=== PATIENT | female | born 2000 | race Caucasian/White ===

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

== ENCOUNTER 2020-11-03 20:41 | Emergency (ER) | payer OTHER, MEDICAID ==
[~2020-11-03] VITALS: Ht 172.7 cm; Wt 123.4 kg
[~2020-11-03 20:41] MED LIST changes: +ACHD5005 PO; -BENZ78AE2 TP; +BENZ78AE5 TP; -CATHETER FLUSH 10 ML SYR IV PRN; -HYDR-83 PO
[2020-11-03 20:52] VITALS: BP 127/62
[2020-11-03] MEDS ORDERED: IBUP-1773 PO (20:58)
--- NOTE | 2020-11-03 21:02 | ED Lower Extremity ---
General Chief Complaint: Lower Extremity Stated Complaint: LT KNEE PAIN History of Present Illness Date Seen by Provider: Nov 03, 2020 Time Seen by Provider: 20:50 Initial Comments 20-year-old female presents with left knee pain. States she was at a gym and bent over and twisted to her left side and felt a pop in her knee. Since then (for the past 2 hours) that she has had some pain in the knee, worse with walking and bending. No significant swelling or bruising. Denies history of knee pain or problems or injury. Denies any other injury or complaint Allergies and Home Medications Allergies Coded Allergies: pumpkin (Verified Adverse Reaction, Unknown, 09/04/18) Home Medications Benzocaine/Menthol 78 Gm Aerosol, 56 ML TP UD PRN for PAIN- SEE INSTRUCTIONS Prescribed by: SHIKHA BOOTHE on 11/22/19 1051 Cephalexin 500 Mg Capsule, 500 MG PO TID Prescribed by: LULÚ AGUILAR on 12/13/19 1514 Dibucaine 30 Gm Oint, 0 GM TOP UD PRN for PAIN- SEE INSTRUCTIONS Prescribed by: SHIKHA BOOTHE on 11/22/19 1051 Docusate Sodium 100 Mg Capsule, 100 MG PO BID PRN for CONSTIPATION-1ST LINE Prescribed by: SHIKHA BOOTHE on 11/22/19 1051 Ferrous Sulfate 325 Mg Tablet, 325 MG PO DAILY Prescribed by: SHIKHA BOOTHE on 11/22/19 1051 Hydrocodone/Acetaminophen 1 Each Tablet, 1 TAB PO Q4H PRN for PAIN-MODERATE (5- 7) Prescribed by: SHIKHA BOOTHE on 11/22/19 1051 Ibuprofen 600 Mg Tablet, 600 MG PO Q6HR Prescribed by: SHIKHA BOOTHE on 11/22/19 1051 Ibuprofen 600 Mg Tablet, 600 MG PO Q8H PRN for PAIN-MILD Prescribed by: LUCHO LAO on 11/03/202057 Ymq972/Iron Fumarate/FA/Dss 1 Each Tablet, 1 EACH PO DAILY, (Reported) Patient Home Medication List Home Medication List Reviewed: Yes Review of Systems Constitutional: no symptoms reported Musculoskeletal: No back pain; joint pain (left knee); No muscle pain, No muscle stiffness, No neck pain Skin: no symptoms reported; No change in color, No rash Psychiatric/Neurological: Denies Numbness, Denies Paresthesia Past Wbwvugy-Klbmeo-Eyhiih Hx Past Med/Social Hx: Reviewed Nursing Past Med/Soc Hx Patient Social History Alcohol Use: Denies Use Smoking Status: Never a Smoker 2nd Hand Smoke Exposure: No Recent Hopitalizations: Yes (three weeks post ) Immunizations Up To Date PED Vaccines UTD: Yes Seasonal Allergies Seasonal Allergies: No Past Medical History Surgeries: No Respiratory: No Cardiac: No Neurological: No Concussion Female Reproductive Disorders: Ovarian Cyst Sexually Transmitted Disease: No Genitourinary: No Kidney Infection, UTI-Chronic Gastrointestinal: No Musculoskeletal: No Endocrine: No HEENT: No Cancer: No Psychosocial: No Integumentary: No Blood Disorders: No Family Medical History Patient reports no known family medical history. Physical Exam Vital Signs Vital Signs - First Documented 11/03/20 20:52 Temp 36.4 Pulse 114 B/P (MAP) 127/62 (83) Pulse Ox 99 O2 Delivery Room Air Capillary Refill : Height, Weight, BMI Height: 5'7.00" Weight: 200lbs. oz. 90.802599pk; 32.00 BMI Method:Stated General Appearance: WD/WN, no apparent distress Hips: bilateral hip non-tender, bilateral hip normal inspection, bilateral hip normal range of motion Legs: bilateral leg non-tender, bilateral leg normal inspection, bilateral leg normal range of motion Knees: left knee normal inspection, left knee normal range of motion, left knee pain (LCL) Ankles: bilateral ankle non-tender, bilateral ankle normal inspection, bilateral ankle normal range of motion Neurologic/Tendon: normal motor functions, normal tendon functions Neurologic/Psychiatric: no motor/sensory deficits, alert, normal mood/affect Skin: normal color, warm/dry full and functional ROM- tender LCL and Lat joint line without effusion. Progress/Results/Core Measures Results/Orders Vital Signs/I&O 11/03/20 20:52 Temp 36.4 Pulse 114 B/P (MAP) 127/62 (83) Pulse Ox 99 O2 Delivery Room Air Departure Impression Primary Impression: Knee LCL sprain Qualified Codes: S83.422A - Sprain of lateral collateral ligament of left knee, initial encounter Disposition: 01 HOME, SELF-CARE Condition: Stable Departure-Patient Inst. Decision time for Depature: 20:57 Referrals: EMRE SU MD (PCP/Family) Primary Care Physician Patient Instructions: Ligament Injuries in the Knee (DC) Add. Discharge Instructions: Follow up with Dr Su in 2 weeks for re-evaluation. Wear the knee brace daily to allow your ligament to start healing. Apply Ice to your knee for 20 minutes twice daily. All discharge instructions reviewed with patient and/or family. Voiced un derstanding. Scripts Ibuprofen (Ibuprofen) 600 Mg Tablet 600 MG PO Q8H PRN for PAIN-MILD, #30 TAB Prov: LUCHO LAO DO 11/03/20 LUCHO LAO DO Nov 03, 2020 21:01
== END 2020-11-03 21:03 | disposition home or self-care (01) ==
LOC: EDUNIT# 20:41 → ER FS 20:43
DX: S83.422A Sprain of lateral collateral ligament of left knee, initial encounter (principal); X50.1XXA Overexertion from prolonged static or awkward postures, initial encounter; Y92.39 Other specified sports and athletic area as the place of occurrence of the external cause
CPT/HCPCS: 99282

== ENCOUNTER 2021-07-11 12:12 | Emergency (ER) | payer BC, MEDICAID ==
[~2021-07-11] VITALS: Ht 175.3 cm; Wt 113.4 kg
[~2021-07-11 12:12] MED LIST changes: -DCS100C PO; +DOCU-239 PO; +IBUP-1773 PO
[2021-07-11 12:39] LABS: BASOPHILS % (AUTO) 0 % (0-10); EOSINOPHILS # (AUTO) 0.1 10^3/uL (0.0-0.3); EOSINOPHILS % (AUTO) 2 % (0-10); HEMATOCRIT 40 % (35-52); HEMOGLOBIN 12.7 g/dL (11.5-16.0); LYMPHOCYTES # (AUTO) 3.4 X 10^3 (1.0-4.0); LYMPHOCYTES % (AUTO) 50 % (12-44); MEAN CORPUSCULAR HEMOGLOBIN 26 pg (25-34); MEAN CORPUSCULAR HGB CONC 32 g/dL (32-36); MEAN CORPUSCULAR VOLUME 81 fL (80-99); MEAN PLATELET VOLUME 9.8 fL (9.0-12.2); MONOCYTES # (AUTO) 0.5 X 10^3 (0.0-1.0); MONOCYTES % (AUTO) 7 % (0-12); NEUTROPHILS # (AUTO) 2.8 X 10^3 (1.8-7.8); NEUTROPHILS % (AUTO) 41 % (42-75); PLATELET COUNT 297 10^3/uL (130-400); WHITE BLOOD COUNT 6.9 10^3/uL (4.3-11.0)
--- NOTE | 2021-07-11 12:56 | Diagnostic Imaging Report ---
EXAMINATION: Chest 1 view HISTORY: Chest pain COMPARISON: None available. FINDINGS: Heart size and pulmonary vasculature are normal. The lungs are clear without consolidation, pleural effusion, or pneumothorax. The osseous structures are intact. IMPRESSION: 1. No acute radiographic abnormality in the chest. Dictated by: Dictated on workstation # [id number]
[2021-07-11 12:57] LABS: ALBUMIN 4.2 GM/DL (3.2-4.5); BILIRUBIN,TOTAL 0.3 MG/DL (0.1-1.0); CALCIUM 9.1 MG/DL (8.5-10.1); CREATININE SERUM 0.63 MG/DL (0.60-1.30); POTASSIUM 3.8 MMOL/L (3.6-5.0); TOTAL PROTEIN 7.5 GM/DL (6.4-8.2)
--- NOTE | 2021-07-11 13:15 | ED Chest Pain ---
General Chief Complaint: Chest Pain Stated Complaint: COVID POSTIVE 07/04, CHEST PAIN Nursing Triage Note: Patient reports she began having symptoms of COVID-19 on June 27, states she was released from quarantine on July 08. She states her symtpoms during her infection were mild and she felt fully recovered 3-4 days after her symptoms started. She reports she began having mid-upper chest pain yesterday, described as tightness, rated 6-7 with deep breathing. She denies any cough, shortness of breath, or other symptoms. Source: patient Exam Limitations: no limitations History of Present Illness Date Seen by Provider: Jul 11, 2021 Time Seen by Provider: 12:45 Initial Comments Patient is a 21-year-old female who is 2 weeks post Covid who presents with left parasternal chest pain starting 2 days ago. Pain is described as dull worse with deep breathing and is mild in nature. Patient denies chest wall tenderness cough, fever, sore throat. No abdominal pain. Patient did take ibuprofen with some improvement. Denies leg pain or swelling. No history of DVT or PE. No no other acute symptoms or complaints Timing/Duration: 2-3 days Severity/Quality: dull Location: other Activities at Onset: other Prior CP/Workup: other Modifying Factors: improves with other Allergies and Home Medications Allergies Coded Allergies: pumpkin (Verified Adverse Reaction, Unknown, 09/04/18) Patient Home Medication List Home Medication List Reviewed: Yes Benzocaine/Menthol (Dermoplast Pain Relieving [place]) 78 Gm Aerosol, 56 ML TP UD PRN for PAIN- SEE INSTRUCTIONS Prescribed by: SHIKHA BOOTHE on 11/22/19 1051 Cephalexin (Keflex) 500 Mg Capsule, 500 MG PO TID Prescribed by: LULÚ AGUILAR on 12/13/19 1514 Dibucaine (Dibucaine) 30 Gm Oint, 0 GM TOP UD PRN for PAIN- SEE INSTRUCTIONS Prescribed by: SHIKHA BOOTHE on 11/22/19 1051 Docusate Sodium (Dok) 100 Mg Capsule, 100 MG PO BID PRN for CONSTIPATION-1ST LINE Prescribed by: SHIKHA OBOTHE on 11/22/19 1051 Ferrous Sulfate (Ferrous Sulfate) 325 Mg Tablet, 325 MG PO DAILY Prescribed by: SHIKHA BOOTHE on 11/22/19 1051 Hydrocodone/Acetaminophen (Hydrocodone-Acetamin 5-325 mg) 1 Each Tablet, 1 TAB PO Q4H PRN for PAIN-MODERATE (5-7) Prescribed by: SHIKHA BOOTHE on 11/22/19 105 Ibuprofen (Ibu) 600 Mg Tablet, 600 MG PO Q6HR Prescribed by: SHIKHA BOOTHE on 11/22/19 105 Ibuprofen (Ibuprofen) 600 Mg Tablet, 600 MG PO Q8H PRN for PAIN-MILD Prescribed by: LUCHO RODRÍGUEZSTHERBERT on 11/03/202057 [id number]/Iron Fumarate/FA/Dss ( 19 Tablet) 1 Each Tablet, 1 EACH PO DAILY, (Reported) Entered as Reported by: JOSEFINA ROBLERO on 08/29/192302 Review of Systems Review of Systems Constitutional: see HPI EENTM: See HPI Respiratory: See HPI Cardiovascular: See HPI Gastrointestinal: See HPI Genitourinary: See HPI Musculoskeletal: see HPI Skin: see HPI Psychiatric/Neurological: See HPI Endocrine: See HPI Hematologic/Lymphatic: See HPI All Other Systems Reviewed Negative Unless Noted: Yes Past Diwqeko-Vrfgon-Vhdymk Hx Patient Social History Tobacco Use?: Yes Substance use?: No Alcohol Use?: No Pt feels they are or have been: No Immunizations Up To Date PED Vaccines UTD: Yes COVID19 Vaccine Property Officer: Moderna Seasonal Allergies Seasonal Allergies: No Past Medical History Surgeries: No Respiratory: No Cardiac: No Neurological: No Concussion Last Menstrual Period: Jul 04, 2021 Female Reproductive Disorders: Ovarian Cyst Sexually Transmitted Disease: No Genitourinary: No Kidney Infection, UTI-Chronic Gastrointestinal: No Musculoskeletal: No Endocrine: No HEENT: No Cancer: No Psychosocial: No Integumentary: No Blood Disorders: No Family Medical History Patient reports no known family medical history. Physical Exam Vital Signs Vital Signs - First Documented 07/11/21 12:20 Temp 36.2 Pulse 97 Resp 16 B/P (MAP) 129/72 (91) Pulse Ox 99 O2 Delivery Room Air Capillary Refill : Less Than 3 Seconds Height, Weight, BMI Height: 5'7.00" Weight: 200lbs. oz. 90.490267ri; 36.00 BMI Method:Stated General Appearance: No Apparent Distress, WD/WN HEENT: PERRL/EOMI, Pharynx Normal, Moist Mucous Membranes Neck: Full Range of Motion, Non Tender, Supple Respiratory: Chest Non Tender, Lungs Clear, Normal Breath Sounds Cardiovascular: Regular Rate, Rhythm Gastrointestinal: Non Tender, Soft Extremity: Normal Inspection, Normal Range of Motion, No Calf Tenderness Neurologic/Psychiatric: Alert, Oriented x3 Focused Exam Sepsis Stage: Ruled Out Progress/Results/Core Measures Results/Orders Lab Results Laboratory Tests Test 07/11/21 12:30 Range/Units White Blood Count 6.9 4.3-11.0 10^3/uL Red Blood Count 4.88 3.80-5.11 10^6/uL Hemoglobin 12.7 11.5-16.0 g/dL Hematocrit 40 35-52 % Mean Corpuscular Volume 81 80-99 fL Mean Corpuscular Hemoglobin 26 25-34 pg Mean Corpuscular Hemoglobin Concent 32 32-36 g/dL Red Cell Distribution Width 14.7 H 10.0-14.5 % Platelet Count 297 130-400 10^3/uL Mean Platelet Volume 9.8 9.0-12.2 fL Immature Granulocyte % (Auto) 0 % Neutrophils (%) (Auto) 41 L 42-75 % Lymphocytes (%) (Auto) 50 H 12-44 % Monocytes (%) (Auto) 7 0-12 % Eosinophils (%) (Auto) 2 0-10 % Basophils (%) (Auto) 0 0-10 % Neutrophils # (Auto) 2.8 1.8-7.8 X 10^3 Lymphocytes # (Auto) 3.4 1.0-4.0 X 10^3 Monocytes # (Auto) 0.5 0.0-1.0 X 10^3 Eosinophils # (Auto) 0.1 0.0-0.3 10^3/uL Basophils # (Auto) 0.0 0.0-0.1 10^3/uL Immature Granulocyte # (Auto) 0.0 0.0-0.1 10^3/uL D-Dimer 0.16 0.00-0.49 UG/ML Sodium Level 137 135-145 MMOL/L Potassium Level 3.8 3.6-5.0 MMOL/L Chloride Level 101 98-107 MMOL/L Carbon Dioxide Level 25 21-32 MMOL/L Anion Gap 11 5-14 MMOL/L Blood Urea Nitrogen 6 L 7-18 MG/DL Creatinine 0.63 0.60-1.30 MG/DL Estimat Glomerular Filtration Rate 119 BUN/Creatinine Ratio 10 Glucose Level 92 70-105 MG/DL Calcium Level 9.1 8.5-10.1 MG/DL Corrected Calcium 8.9 8.5-10.1 MG/DL Total Bilirubin 0.3 0.1-1.0 MG/DL Aspartate Amino Transf (AST/SGOT) 21 5-34 U/L Alanine Aminotransferase (ALT/SGPT) 40 0-55 U/L Alkaline Phosphatase 73 40-136 U/L Total Protein 7.5 6.4-8.2 GM/DL Albumin 4.2 3.2-4.5 GM/DL My Orders Orders - WALTER PA DO Cbc With Automated Diff (07/11/21 12:32) Comprehensive Metabolic Panel (07/11/21 12:32) Chest 1 View Ap/Pa Only (07/11/21 12:32) Urine Bedside (07/11/21 12:32) Fibrin Degradation Products (07/11/21 12:32) Ekg Tracing (07/11/21 13:03) Vital Signs/I&O 07/11/21 12:20 Temp 36.2 Pulse 97 Resp 16 B/P (MAP) 129/72 (91) Pulse Ox 99 O2 Delivery Room Air Blood Pressure Mean: 91 Departure Communication (Admissions) Chest x-ray: No acute cardiopulmonary disease per radiology report. Patient with mild pleuritic chest pain in the setting of recent Covid. Vital signs stable. D-dimer is low probability for likelihood of PE. Patient symptoms are clinically more consistent with pleurisy. Will treat supportively with PCP follow-up. Return precautions reviewed. Patient verbalizes understanding agreement discharge instructions prior to departure. Impression Primary Impression: Pleurisy Additional Impression: Chest pain Disposition: 01 HOME, SELF-CARE Condition: Stable Departure-Patient Inst. Decision time for Depature: 13:15 Referrals: MERE SU MD (PCP/Family) Primary Care Physician Patient Instructions: Pleuritic Chest Pain Add. Discharge Instructions: You were evaluated the emergency department for pleuritic chest pain with concern for the possibility of a blood clot.. Lab work and x-ray were performed and are nondiagnostic, but suggest that you are currently low risk for having a blood clot in your lungs. Your symptoms are most consistent with pleurisy or inflammation of the lining of the lung. Please take 600 mg of ibuprofen 3 times daily along with Pepcid [id number]. Follow-up with your PCP in 3 to 5 days for reevaluation if symptoms persist. Return to the ED if new or worsening symptoms. All discharge instructions reviewed with patient and/or family. Voiced understanding. WALTER PA DO Jul 11, 2021 13:15
[2021-07-11 13:21] VITALS: BP 126/71
== END 2021-07-11 13:23 | disposition home or self-care (01) ==
LOC: EDUNIT# 12:12 → ER FS 12:14
DX: R09.1 Pleurisy (principal); R79.1 Abnormal coagulation profile; Z86.16 Personal history of COVID-19
CPT/HCPCS: 36415; 71045; 80053; 84703; 85025; 85379; 93005

== ENCOUNTER → 2021-08-26 | Outpatient (CLI) | payer BC, MEDICAID ==
--- NOTE | 2021-08-26 11:41 | Diagnostic Imaging Report ---
PROCEDURE: Pelvic comp/transvaginal sonogram. TECHNIQUE: Complete transabdominal and transvaginal pelvic ultrasound was performed. In addition, limited pelvic Doppler was performed. INDICATION: Secondary amenorrhea. Uterus is anteverted measuring 5.8 x 3.5 x 3.9 cm. Endometrium is 7 mm in thickness. No myometrial mass is detected. Right ovary measures 4.0 x 3.0 x 3.4 cm and the left ovary measures 2.2 x 1.4 x 2.5 cm. There is a solid-appearing mass involving the right ovary measuring 2.7 x 2.6 x 2.7 cm. This does appear to have some blood flow present. No other masses are seen. Left ovary contains small follicles. There is no free fluid identified. IMPRESSION: There is a solid mass showing vascularity in the right ovary. No other significant abnormality is seen. Dictated by: Dictated on workstation # [id number]
== END ==
LOC: RAD 09:57
PROVIDERS: ATTEND Obstetrics & Gynecology
DX: N91.1 Secondary amenorrhea (principal); N83.8 Other noninflammatory disorders of ovary, fallopian tube and broad ligament
CPT/HCPCS: 76830; 76856

== ENCOUNTER → 2021-12-30 | Outpatient (CLI) | payer BC, MEDICAID ==
--- NOTE | 2021-12-30 11:08 | Diagnostic Imaging Report ---
PROCEDURE: Pelvic comp/transvaginal sonogram. TECHNIQUE: Complete transabdominal and transvaginal pelvic ultrasound was performed. In addition, limited pelvic Doppler was performed. INDICATION: Abdominal and pelvic swelling. Uterus is anteverted measuring 5.9 x 3.5 x 4.2 cm. Endometrium is 5 mm in thickness. No myometrial mass is detected. The left ovary measures 2.6 x 1.4 x 1.5 cm. There is a solid-appearing mass in the right adnexa measuring 5.6 x 5.3 x 5.7 cm. There is some internal and peripheral based vascularity. Normal-appearing right ovary is not well visualized. There is blood flow to left ovary. There is no free fluid detected. IMPRESSION: There appears to be a solid mass in the right adnexa, not definitely seen on prior ultrasound from 08/26/2021. Normal-appearing right ovary is not well visualized on today's study. Dictated by: Dictated on workstation # [id number]
== END ==
LOC: RAD 10:00
PROVIDERS: ATTEND Obstetrics & Gynecology
DX: N83.9 Noninflammatory disorder of ovary, fallopian tube and broad ligament, unspecified (principal)
CPT/HCPCS: 76830; 76856

== ENCOUNTER 2022-02-14 05:34 | Outpatient (CLI) | payer BC, MEDICAID ==
[~2022-02-14] VITALS: Ht 172.7 cm; Wt 115.7 kg
== END 2022-02-14 11:48 | disposition home or self-care (01) ==
LOC: PREOP 05:34
PROVIDERS: ATTEND Obstetrics & Gynecology
DX: Z01.818 Encounter for other preprocedural examination (principal)

== ENCOUNTER 2022-02-21 09:18 | Day surgery (SDC) | payer BC, MEDICAID ==
[2022-02-21] VITALS (12 sets, daily range): BP systolic 97–124; BP diastolic 58–82
[~2022-02-21] VITALS: Ht 172.7 cm; Wt 115.7 kg
[2022-02-21] MEDS: LACTATED RINGERS 1,000 ML IV PRN ×3 (09:48→13:56)
--- NOTE | 2022-02-21 09:56 | Progress Note-Pre Operative ---
Pre-Operative Progress Note Date of Available H&P: Feb 21, 2022 Date H&P Reviewed: Feb 21, 2022 Time H&P Reviewed: 09:55 History & Physical: H&P Reviewed, Patient Examed, No changes noted Pre-Operative Diagnosis: Right ovarian solid mass 5x5cm SHIKHA BOOTHE DO Feb 21, 2022 09:56
[2022-02-21] MEDS ORDERED: ceFAZolin INJECTION 1,000 MG VIAL IV ONE (10:00)
[2022-02-21] MEDS ORDERED: metroNIDAZOLE 500MG/100ML IVPB 100 ML IV ONE (10:00)
[2022-02-21 10:39] LABS: BASOPHILS % (AUTO) 1 % (0-10); EOSINOPHILS # (AUTO) 0.1 10^3/uL (0.0-0.3); EOSINOPHILS % (AUTO) 1 % (0-10); HEMATOCRIT 37 % (35-52); LYMPHOCYTES # (AUTO) 2.5 10^3/uL (1.0-4.0); LYMPHOCYTES % (AUTO) 41 % (12-44); MEAN CORPUSCULAR HEMOGLOBIN 26 pg (25-34); MEAN CORPUSCULAR HGB CONC 32 g/dL (32-36); MEAN CORPUSCULAR VOLUME 81 fL (80-99); MEAN PLATELET VOLUME 10.4 fL (9.0-12.2); MONOCYTES # (AUTO) 0.5 10^3/uL (0.0-1.0); MONOCYTES % (AUTO) 7 % (0-12); NEUTROPHILS # (AUTO) 3.1 10^3/uL (1.8-7.8); NEUTROPHILS % (AUTO) 50 % (42-75); PLATELET COUNT 301 10^3/uL (130-400); WHITE BLOOD COUNT 6.2 10^3/uL (4.3-11.0)
[2022-02-21] MEDS ORDERED: ACHD5005 PO (11:06)
[2022-02-21] MEDS ORDERED: IBUP-1773 PO (11:06)
--- NOTE | 2022-02-21 11:06 | Discharge Inst-Women's Service ---
Discharge Inst-Women's Serv Depart Medication/Instructions New, Converted or Re-Newed RX: Transmitted to Pharmacy Problems Reviewed?: Yes Consults/Follow Up Additional Follow Up: Yes Activity Activity: Activity as Tolerated Driving Instructions: No Driving for 1 Week NO SMOKING: NO SMOKING Nothing Inside Vagina: No Douching, No [place], No Tampons Diet Discharge Diet: No Restrictions Symptoms to Report to : Bleeding Excessive, Pain Increased, Fever Over 101 Degrees F, Vaginal Bleeding Increase, Questions/Concerns For Any Problems or Questions: Contact Your Physician Skin/Wound Care Infection Signs and Symptoms: Increased Redness, Foul Odor of Wound, Increased Drainage, Skin Itchy or Has a Rash, Increased Swelling, Temperature Above 101 F Operative Area Clean and Dry: Keep Incision Clean/Dry SHIKHA BOOTHE DO Feb 21, 2022 11:06
[2022-02-21] MEDS ORDERED: proPOfol 200 MG/20 ML (DIPRIVAN) VIAL IV ONE (11:14)
[2022-02-21] MEDS ORDERED: LIDOCAINE PF 2% 5 ML (XYLOCAINE) VIAL ONE (11:14)
[2022-02-21] MEDS ORDERED: ONDANSETRON 4 MG/2 ML (SDV) Z0FRAN ONE (11:14)
[2022-02-21] MEDS ORDERED: fentaNYL INJ 100 MCG/2 ML AMP ONE ×3 (11:14→13:31)
[2022-02-21] MEDS ORDERED: ROCURONIUM 50 MG/5 ML (ZEMURON) VIAL IV ONE (11:14)
[2022-02-21] MEDS ORDERED: MIDAZOLAM 2 MG/2 ML (VERSED) VIAL ONE (11:14)
[2022-02-21] MEDS ORDERED: KETOROLAC 30 MG/ML VIAL IVP ONE (11:15)
[2022-02-21] MEDS ORDERED: HYDROcodone/APAP 5 MG/325 MG (LORTAB) TAB PO PRN (11:15)
[2022-02-21] MEDS ORDERED: D5 LR IV SOLUTION 1,000 ML IV SCH (11:15)
[2022-02-21] MEDS ORDERED: ONDANSETRON 4 MG/2 ML (SDV) Z0FRAN IVP PRN ×2 (11:15→13:45)
--- NOTE | 2022-02-21 11:36 | History & Physical-Surgical ---
HPO-Surgical History of Present Illness Chief Complaint: Right ovarian Mass Diagnosis/Surgical Indication: Right ovarian solid mass 5x5cm Procedure: RATL REMOVAL RIGHT OVARIAN MASS SOLID Date of Surgery: Feb 21, 2022 Weight (Pounds): 200 Height (Feet): 5 Height (Inches): 7.00 Allergies and Home Medications Allergies Coded Allergies: pumpkin (Verified Adverse Reaction, Unknown, 02/21/22) Patient Home Medication List Home Medication List Reviewed: Yes Hydrocodone Bit/Acetaminophen (HYDROcodone/APAP 5 MG/325 MG TAB) 1 Tab Tab, 1-2 EA PO Q6HR PRN for PAIN-MODERATE (5-7) Prescribed by: SHIKHA BOOTHE on 02/21/22 1106 Ibuprofen (Ibuprofen) 600 Mg Tablet, 600 MG PO Q6H Prescribed by: SHIKHA BOOTHE on 02/21/22 1106 Discontinued Medications Benzocaine/Menthol (Dermoplast Pain Relieving [place]) 78 Gm Aerosol, 56 ML TP UD PRN for PAIN- SEE INSTRUCTIONS Discontinued Reason: No Longer Taking Prescribed by: SHIKHA BOOTHE on 11/22/19 1051 Cephalexin (Keflex) 500 Mg Capsule, 500 MG PO TID Discontinued Reason: No Longer Taking Prescribed by: LULÚ AGUILAR on 12/13/19 1514 Dibucaine (Dibucaine) 30 Gm Oint, 0 GM TOP UD PRN for PAIN- SEE INSTRUCTIONS Discontinued Reason: No Longer Taking Prescribed by: SHIKHA BOOTHE on 11/22/19 1051 Docusate Sodium (Dok) 100 Mg Capsule, 100 MG PO BID PRN for CONSTIPATION-1ST LINE Discontinued Reason: No Longer Taking Prescribed by: SHIKHA BOOTHE on 11/22/19 1051 Ferrous Sulfate (Ferrous Sulfate) 325 Mg Tablet, 325 MG PO DAILY Discontinued Reason: No Longer Taking Prescribed by: SHIKHA BOOTHE on 11/22/19 1051 Hydrocodone/Acetaminophen (Hydrocodone-Acetamin 5-325 mg) 1 Each Tablet, 1 TAB PO Q4H PRN for PAIN-MODERATE (5-7) Discontinued Reason: No Longer Taking Prescribed by: SHIKHA BOOTHE on 11/22/19 1051 Ibuprofen (Ibu) 600 Mg Tablet, 600 MG PO Q6HR Discontinued Reason: No Longer Taking Prescribed by: SHIKHA BOOTHE on 11/22/19 1051 Ibuprofen (Ibuprofen) 600 Mg Tablet, 600 MG PO Q8H PRN for PAIN-MILD Discontinued Reason: No Longer Taking Prescribed by: LUCHO Mast ROVENSTINE on 11/03/202057 [id number]/Iron Fumarate/FA/Dss ( 19 Tablet) 1 Each Tablet, 1 EACH PO DAILY, (Reported) Discontinued Reason: No Longer Taking Entered as Reported by: JOSEFINA ROBLERO on 08/29/192302 Past Uvqrqmx-Fcfobi-Tqzcbv Hx Patient Social History Smoking Status: Never a Smoker 2nd Hand Smoke Exposure: No Recent Hopitalizations: No Immunizations Up To Date Pediatric: Yes Seasonal Allergies Seasonal Allergies: No Surgeries No Respiratory Yes (SPORT INDUCED ASTHMA) Cardiovascular No Neurological No Concussion Reproductive System Sexually Transmitted Disease: No Female Reproductive Disorders: Ovarian Cyst Genitourinary No Kidney Infection, UTI-Chronic Gastrointestinal No Musculoskeletal No Endocrine History of Endocrine Disorders: No HEENT History of HEENT Disorders: No Cancer No Psychosocial History of Psychiatric Problem: No Behavioral Health Disorders: Anxiety Integumentary History of Skin or Integumenta: No Blood Transfusions History of Blood Disorders: No Family Medical History Family Hx: Patient reports no known family medical history. Exam Vital Signs Vital Signs 02/21/22 02/21/22 09:35 10:04 Temp 37.2 Pulse 89 Resp 18 B/P (MAP) 122/73 (89) Pulse Ox 98 O2 Delivery Room Air Capillary Refill : Labs Laboratory Tests Test 02/21/22 10:28 Range/Units White Blood Count 6.2 4.3-11.0 10^3/uL Red Blood Count 4.64 3.80-5.11 10^6/uL Hemoglobin 12.0 11.5-16.0 g/dL Hematocrit 37 35-52 % Mean Corpuscular Volume 81 80-99 fL Mean Corpuscular Hemoglobin 26 25-34 pg Mean Corpuscular Hemoglobin Concent 32 32-36 g/dL Red Cell Distribution Width 14.8 H 10.0-14.5 % Platelet Count 301 130-400 10^3/uL Mean Platelet Volume 10.4 9.0-12.2 fL Immature Granulocyte % (Auto) 0 % Neutrophils (%) (Auto) 50 42-75 % Lymphocytes (%) (Auto) 41 12-44 % Monocytes (%) (Auto) 7 0-12 % Eosinophils (%) (Auto) 1 0-10 % Basophils (%) (Auto) 1 0-10 % Neutrophils # (Auto) 3.1 1.8-7.8 10^3/uL Lymphocytes # (Auto) 2.5 1.0-4.0 10^3/uL Monocytes # (Auto) 0.5 0.0-1.0 10^3/uL Eosinophils # (Auto) 0.1 0.0-0.3 10^3/uL Basophils # (Auto) 0.0 0.0-0.1 10^3/uL Immature Granulocyte # (Auto) 0.0 0.0-0.1 10^3/uL General Appearance: Alert, Oriented X3 HEENT: Atraumatic Respiratory: Clear to Auscultation Cardiovascular: Regular Rate Abdominal: Normal Bowel Sounds Psych/Mental Status: Mental Status NL Assessment/Plan Assessment and Plan P: Laparoscopic removal right ovarian mass Admission Diagnosis Solid Right Ovarian Mass (5x5 cm) Admission Status: Other (Same Day Surgery) SHIKHA BOOTHE DO Feb 21, 2022 11:36
[2022-02-21] MEDS ORDERED: BUPIVACAINE 0.25% 30 ML (SENSORCAINE) VIAL ONE (11:53)
[2022-02-21] MEDS ORDERED: NEOSTIGMINE (BLOXIVERZ ) 1 MG/1ML 10 ML VIAL ONE (12:45)
[2022-02-21] MEDS ORDERED: GLYCOPYRROLATE 0.2 MG/ML (ROBINUL) 2 ML VIAL ONE (12:45)
[2022-02-21] MEDS ORDERED: SEVOFLURANE (ULTANE) 15 ML INHAL SOLN ONE (13:40)
[2022-02-21] MEDS ORDERED: fentaNYL INJ 100 MCG/2 ML AMP IVP ONE (13:45)
[2022-02-21] MEDS ORDERED: morphine INJ 10 MG/ML 1ML (SYR OR VIAL) IVP ONE (13:45)
[2022-02-21] MEDS ORDERED: morphine INJ 10 MG/ML 1ML (SYR OR VIAL) ONE (13:53)
--- NOTE | 2022-02-21 14:05 | Anesthesia-General Post-Op ---
General Patient Condition Mental Status/LOC: Same as Preop Cardiovascular: Satisfactory Nausea/Vomiting: Absent Respiratory: Satisfactory Pain: Controlled Complications: Absent Post Op Complications Complications None Follow Up Care/Instructions Patient Instructions None needed. Anesthesia/Patient Condition Patient Condition Patient is doing well in PACU. She does complain of some abdominal pain which is to be expected, stable vital signs, no apparent adverse anesthesia problems. No complications reported per nursing. PATRICIA SANTO DO Feb 21, 2022 14:05
--- NOTE | 2022-02-21 18:50 | OPERATIVE REPORT ---
DATE OF SERVICE: PREOPERATIVE DIAGNOSIS: A 21-year-old female with 5 x 5 cm right solid ovarian mass. POSTOPERATIVE DIAGNOSIS: A 21-year-old female with 5 x 5 cm right solid ovarian mass. PROCEDURE: Laparoscopic removal of right ovarian mass with robotic assistance. SURGEON: Joseph Najera DO CNC SPECIALIST: Dari Ellison DNP, was necessary for manipulation and retraction throughout the procedure. ANESTHESIA: General endotracheal. ESTIMATED BLOOD LOSS: 100 mL. URINE OUTPUT: 150 mL clear at the end of the procedure. FLUIDS: 1700 mL lactated Ringer's solution. FINDINGS: Grossly normal appearing uterus, bilateral fallopian tubes and left ovary. Right ovary that is vastly enlarged approximately 6 x 6 cm in diameter. SPECIMEN SENT: Right ovarian mass. INDICATIONS FOR PROCEDURE: This 21-year-old female is a patient who had sought care in my office initially for oligomenorrhea, however, on further evaluation, there was found to be a right sided ovarian mass, earlier this year was 2 cm, within four months it changed from 2 to 5 cm. Due to this rapid change in size, I discussed with the patient removal of this ovarian mass, which was solid. Tumor markers forward were negative. We decided to attempt this minimally invasive in a laparoscopic manner with robotic assistance. Risks of the procedure were discussed with the patient in detail including possible risk of taking and removing the right ovary. After all of her questions were answered, consent was obtained, the patient was taken to the operating room. OPERATIVE REPORT IN DETAIL: Once in the operating room, anesthesia was found to be adequate, placed in dorsal lithotomy position, prepped and draped in normal sterile fashion. Timeout was performed. Anesthesia is administered. A Layne catheter was placed using sterile technique. Weighted speculum inserted to the patient's vagina. Right angle retractor was used to visualize the cervix, which was grasped at 12 o'clock position using a long Allis clamp. I then placed a [employer] uterine manipulator to a depth of 8 cm after the uterus was sounded to 8 cm, after which I removed the other instruments from the patient's vagina, performed change of gloves, turned my attention to the abdomen, where subcostally the midclavicular line on the left side, I placed a Veress needle through the skin until intraperitoneal placement was confirmed using saline drop test. An opening pressure of 3 mmHg was noted. I proceeded with CO2 insufflation to maximum pressure of 15 mmHg, at which point, I made an infraumbilical incision at approximately 8 mm and directed a blunt laparoscopic da Tolu camera trocar through this incision until intraperitoneal placement was confirmed using the da Tolu laparoscope. There was no evidence of damage upon my entry site. A brief scan of the upper abdominal anatomy appears to be grossly normal. There is no evidence of damage upon the Veress entry site and the Veress needle was removed at that point. I then had the patient placed in steep Trendelenburg where I am able to visualize all my pelvic anatomy as defined in my findings above. I placed two lateral trocars, both 8 mm trocars. They are approximately 8 cm lateral to my infraumbilical trocar. Once both of these trocars are placed under direct visualization of laparoscope, I bring in the da Tolu robot and docked in appropriate fashion, starting with the SynchroSeal device in left hand and monopolar ginny in the right hand. I began by incising down the capsule of the ovary longitudinally. I then began by peeling back the capsule of the ovary around this large ovarian mass. It does separate quite easily, however do run into a small amount of bleeding in the process of doing this. After I have done this circumferentially around the entirety of the mass, the mass was removed and put into the posterior cul-de-sac. I then focused on cauterizing and ligating all the bleeding from the raw dissection plane that was created by removal of the mass. This has to be done using bipolar cautery in several different areas. After this was done, the ovarian capsule that remains is copiously irrigated using normal saline and there was no active bleeding noted. I then fill that ovarian capsule area and all the raw surfaces with Surgiflo hemostatic agent. I wrapped the ovarian capsule around the Surgiflo agent and placed it back into the position of the right ovarian fossa in the pelvis. At that point, I removed and undocked the da Tolu robot and proceeded with remainder of the case laparoscopically. I have to extend my infraumbilical incision to approximately 4 cm laterally on the skin and extend the underlying fascial incision using chandra scissors as well. A 15 mm trocar is advanced through this incision now and this allows me to place a 15 mm Endopouch bag into the pelvis where I am able to scoop in place the ovarian mass into the Endopouch bag. Once it is in the bag, I am able to remove the ovary through the enlarged incision site and the umbilicus. After that is removed, I closed the fascia of that incision site using 0 Vicryl suture in a running fashion and I still have my two lateral trocar sites at that point. I reinsufflated the abdomen. There was no active bleeding noted from any of the sites of dissection including the anterior abdominal wall where the ovary was removed. I copiously irrigated the pelvis using normal saline. I copiously irrigated the upper abdomen using normal saline. There was no active bleeding noted once again. I then had the patient slowly taken out of steep Trendelenburg and suctioned the irrigation that is free. Once she is flattened, I removed the lateral trocars under direct visualization of the laparoscope. This is after insufflation is released. I then closed the lateral incisions using 4-0 Monocryl interrupted subcuticular stitches. Dermabond was placed over these incisions as well. The infraumbilical incision is closed using 4-0 Monocryl running subcuticular. Dermabond was placed over this incision as well. Band-Aids were placed over all of the incisions. A Kronner uterine manipulator and Layne catheter were removed at the end of procedure. The patient tolerated the procedure well and sent to recovery area in stable condition. Lap and sponge counts were correct at the end of the procedure. Instrument counts correct as well. A 2 grams of Ancef, 500 mg of Flagyl were given preoperatively for infection prophylaxis. Job ID: [id number] DocumentID: [id number] Dictated Date: 02/21/2022 13:26:16 [employer] Date: 02/21/2022 18:49:21 Dictated By: DO WICHO GUAN
== END 2022-02-21 16:15 ==
LOC: SDC 09:18
PROVIDERS: ATTEND Obstetrics & Gynecology
DX: D39.11 Neoplasm of uncertain behavior of right ovary (principal)
CPT/HCPCS: 36415; 84703; 85025; 86850; 86900; 86901; 87081; 94664

== ENCOUNTER → 2022-03-02 | Outpatient (CLI) | payer BC, MEDICAID ==
[~2022-03-02] MED LIST changes: +CATHETER FLUSH 10 ML SYR IV PRN; +HOLD METFORMIN - RECEIVED CONTRAST 20 ML VIAL IV SCH; +IOHEXOL 350 MG/ML 100 ML (OMNIPAQUE 350) VIAL IV ONE; +NS 100 ML (IVPB) BAG IV ONE
--- NOTE | 2022-03-02 14:09 | Diagnostic Imaging Report ---
PROCEDURE: CT abdomen and pelvis with contrast. TECHNIQUE: Multiple contiguous axial images were obtained through the abdomen and pelvis after administration of intravenous contrast. Auto Exposure Controls were utilized during the CT exam to meet ALARA standards for radiation dose reduction. All CT scans use one or more of the following dose optimizing techniques: automated exposure control, MA and/or KvP adjustment based on patient size and exam type or iterative reconstruction. INDICATION: Ovarian carcinoma. COMPARISON: No prior studies are available for comparison. FINDINGS: The lung bases are clear. The liver demonstrates diffuse low attenuation, consistent with hepatic steatosis. No liver mass is identified. The gallbladder is unremarkable. There is no biliary ductal dilatation. The pancreas and spleen are unremarkable. No adrenal mass is detected. The kidneys are unremarkable. The aorta is nonaneurysmal. No abdominal or pelvic lymphadenopathy is identified. There are postop changes of the midline anterior abdominal wall. Bowel loops are of normal caliber. There are postop changes in the right adnexa where there is a small amount of fluid and gas measuring 4.2 x 2.6 cm. The left ovary and uterus are unremarkable. The bladder is unremarkable. IMPRESSION: 1. Hepatic steatosis. 2. Post operative changes. There is an area of fluid and gas in the right adnexa which may be post operative. No other significant abnormality is seen. Dictated by: Dictated on workstation # [id number]
== END ==
LOC: RAD 11:59
PROVIDERS: ATTEND Obstetrics & Gynecology
DX: K76.0 Fatty (change of) liver, not elsewhere classified (principal); D27.9 Benign neoplasm of unspecified ovary; Z98.890 Other specified postprocedural states
CPT/HCPCS: 74177

== ENCOUNTER 2022-08-14 22:07 | Emergency (ER) | payer OTHER, MEDICAID ==
[~2022-08-14 22:07] MED LIST changes: -CATHETER FLUSH 10 ML SYR IV PRN; -HOLD METFORMIN - RECEIVED CONTRAST 20 ML VIAL IV SCH; -IOHEXOL 350 MG/ML 100 ML (OMNIPAQUE 350) VIAL IV ONE; -NS 100 ML (IVPB) BAG IV ONE
[2022-08-14] MEDS ORDERED: NS IV 1000 ML 1,000 ML IV STA (22:24)
[2022-08-14 22:33] LABS: BASOPHILS % (AUTO) 0 % (0-10); EOSINOPHILS # (AUTO) 0.1 10^3/uL (0.0-0.3); EOSINOPHILS % (AUTO) 1 % (0-10); HEMATOCRIT 33 % (35-52); HEMOGLOBIN 10.9 g/dL (11.5-16.0); LYMPHOCYTES # (AUTO) 2.3 10^3/uL (1.0-4.0); LYMPHOCYTES % (AUTO) 53 % (12-44); MEAN CORPUSCULAR HEMOGLOBIN 26 pg (25-34); MEAN CORPUSCULAR HGB CONC 34 g/dL (32-36); MEAN CORPUSCULAR VOLUME 78 fL (80-99); MEAN PLATELET VOLUME 9.7 fL (9.0-12.2); MONOCYTES # (AUTO) 0.2 10^3/uL (0.0-1.0); MONOCYTES % (AUTO) 4 % (0-12); NEUTROPHILS # (AUTO) 1.8 10^3/uL (1.8-7.8); NEUTROPHILS % (AUTO) 42 % (42-75); PLATELET COUNT 173 10^3/uL (130-400); WHITE BLOOD COUNT 4.3 10^3/uL (4.3-11.0)
--- NOTE | 2022-08-14 22:39 | ED Fever ---
History of Present Illness General Chief Complaint: Fever-Adult/Adol Stated Complaint: FEVER Source: patient History of Present Illness Date Seen by Provider: Aug 14, 2022 Time Seen by Provider: 22:10 Initial Comments 22-year-old female presenting with fever T-max 101.3 at home wendy. She states that she has not felt well all day but when she took her temperature this evening it was elevated. She had her most recent chemotherapy treatment on with carboplatin and Taxol. She follows with the [facility] out of [facility] and research. She had called the on-call oncologist wendy and they advised her to go to the emergency department. She was borderline neutropenic with an ANC of 1.4 last week. She did take ibuprofen at home before calling the oncologist. Her temperature is normal here in the emergency department. She denies having cough, nasal congestion, abdominal pain, vomiting, pain with urination, diarrhea. She does have some nausea but has not thrown up. She is taking fluconazole currently for a sore throat and she was told that was for possible reaction to her chemotherapy. She may have been having some thrush that they saw. She states that her throat pain is resolved but she still has some pressure and pain in her ears. Timing/Duration: this evening Fever Quality: greater than 100.5 F Fever Therapy BILLING SUPERVISOR: Ibuprofen Associated Symptoms: No abdominal pain, No chest pain, No confusion, No cough, No diaphoresis, No headache; muscle aches (Generalized body aches), nausea/vomiting (Nausea but no vomiting); No rash, No shortness of breath, No sore throat, No stiff neck, No syncope, No weakness Allergies and Home Medications Allergies Coded Allergies: pumpkin (Verified Adverse Reaction, Unknown, 02/21/22) Patient Home Medication List Home Medication List Reviewed: Yes Hydrocodone Bit/Acetaminophen (HYDROcodone/APAP 5 MG/325 MG TAB) 1 Tab Tab, 1-2 EA PO Q6HR PRN for PAIN-MODERATE (5-7) Prescribed by: SHIKHA BOOTHE on 02/21/22 110 Ibuprofen (Ibuprofen) 600 Mg Tablet, 600 MG PO Q6H Prescribed by: SHIKHA BOOTHE on 02/21/22 1106 Review of Systems Review of Systems Constitutional: chills; No diaphoresis; fever, malaise EENTM: ear pain, throat pain (Last week but resolved since taking the fluconazole); No epistaxis, No nose congestion Respiratory: No short of breath Cardiovascular: No chest pain, No palpitations Gastrointestinal: No abdominal pain, No diarrhea; nausea; No vomiting Genitourinary: No dysuria, No frequency Musculoskeletal: muscle pain (Generalized body aches) Skin: No rash Psychiatric/Neurological: Denies Headache Past Jhshbqk-Zkhexa-Dpmays Hx Patient Social History Tobacco Use?: No Use of E-Cig and/or Vaping dev: No Substance use?: No Alcohol Use?: No Immunizations Up To Date PED Vaccines UTD: Yes First/Initial COVID19 Vaccinat: 2020 x1 dose Seasonal Allergies Seasonal Allergies: No Past Medical History Surgery/Hospitalization HX: PowerPort,, asthma, ovarian cancer Surgeries: Yes Respiratory: Yes (SPORT INDUCED ASTHMA) Asthma Currently Using CPAP: No Currently Using BIPAP: No Cardiac: No Neurological: No Concussion Female Reproductive Disorders: Ovarian Cyst Sexually Transmitted Disease: No Genitourinary: No Kidney Infection, UTI-Chronic Gastrointestinal: No Musculoskeletal: No Endocrine: No HEENT: No Cancer: Yes Ovarian Did You Recieve Any Treatments: Yes What Type of Treatment Did You: Chemotherapy Psychosocial: No Anxiety Integumentary: No Blood Disorders: No Family Medical History Patient reports no known family medical history. Physical Exam Vital Signs - First Documented 08/14/22 22:13 Temp 36.9 Pulse 114 Resp 18 B/P (MAP) 134/83 (100) Pulse Ox 97 O2 Delivery Room Air Capillary Refill : Height: 5'7.00" Weight: 200lbs. oz. [id number]; 38.79 BMI Method:Stated General Appearance: no apparent distress, obese HEENT: PERRL/EOMI, pharynx normal, TM abnormal (R), TM abnormal (L), other (mild dullness to bilateral TMs without erythema) Neck: non-tender, full range of motion, supple, normal inspection Respiratory: chest non-tender, lungs clear, normal breath sounds, no respiratory distress, no accessory muscle use Cardiovascular: normal peripheral pulses, regular rate, rhythm Gastrointestinal: normal bowel sounds, non tender, soft, no pulsatile mass Extremities: normal range of motion, non-tender, normal capillary refill Neurologic/Psychiatric: alert, oriented x 3 Skin: normal color, warm/dry Focused Exam Lactate Level 08/14/22 22:26: Lactic Acid Level 1.25 Lactic Acid Level Laboratory Tests Test 08/14/22 22:26 Lactic Acid Level 1.25 MMOL/L (0.50-2.00) Progress/Results/Core Measures Suspected Sepsis SIRS Temperature: Pulse: Respiratory Rate: Laboratory Tests 08/14/22 22:26: White Blood Count 4.3 Blood Pressure / Mean: 08/14/22 22:26: Lactic Acid Level 1.25 Laboratory Tests 08/14/22 22:26: Creatinine 0.54L, Platelet Count 173, Total Bilirubin < 0.2 Results/Orders Lab Results Laboratory Tests Test 08/14/22 22:26 08/14/22 22:43 Range/Units White Blood Count 4.3 4.3-11.0 10^3/uL Red Blood Count 4.16 3.80-5.11 10^6/uL Hemoglobin 10.9 L 11.5-16.0 g/dL Hematocrit 33 L 35-52 % Mean Corpuscular Volume 78 L 80-99 fL Mean Corpuscular Hemoglobin 26 25-34 pg Mean Corpuscular Hemoglobin Concent 34 32-36 g/dL Red Cell Distribution Width 15.6 H 10.0-14.5 % Platelet Count 173 130-400 10^3/uL Mean Platelet Volume 9.7 9.0-12.2 fL Immature Granulocyte % (Auto) 0 % Neutrophils (%) (Auto) 42 42-75 % Lymphocytes (%) (Auto) 53 H 12-44 % Monocytes (%) (Auto) 4 0-12 % Eosinophils (%) (Auto) 1 0-10 % Basophils (%) (Auto) 0 0-10 % Neutrophils # (Auto) 1.8 1.8-7.8 10^3/uL Lymphocytes # (Auto) 2.3 1.0-4.0 10^3/uL Monocytes # (Auto) 0.2 0.0-1.0 10^3/uL Eosinophils # (Auto) 0.1 0.0-0.3 10^3/uL Basophils # (Auto) 0.0 0.0-0.1 10^3/uL Immature Granulocyte # (Auto) 0.0 0.0-0.1 10^3/uL Sodium Level 135 135-145 MMOL/L Potassium Level 3.7 3.6-5.0 MMOL/L Chloride Level 99 98-107 MMOL/L Carbon Dioxide Level 25 21-32 MMOL/L Anion Gap 11 5-14 MMOL/L Blood Urea Nitrogen 9 7-18 MG/DL Creatinine 0.54 L 0.60-1.30 MG/DL Estimat Glomerular Filtration Rate 133 BUN/Creatinine Ratio 17 Glucose Level 97 70-105 MG/DL Lactic Acid Level 1.25 0.50-2.00 MMOL/L Calcium Level 9.2 8.5-10.1 MG/DL Corrected Calcium 9.2 8.5-10.1 MG/DL Total Bilirubin < 0.2 0.1-1.0 MG/DL Aspartate Amino Transf (AST/SGOT) 11 5-34 U/L Alanine Aminotransferase (ALT/SGPT) 13 0-55 U/L Alkaline Phosphatase 59 40-136 U/L C-Reactive Protein < 0.30 <0.50 MG/DL Total Protein 6.9 6.4-8.2 GM/DL Albumin 4.0 3.2-4.5 GM/DL Urine Color YELLOW Urine Clarity CLEAR Urine pH 7.0 5-9 Urine Specific [place] 1.015 L 1.016-1.022 Urine Protein NEGATIVE NEGATIVE Urine Glucose (UA) NEGATIVE NEGATIVE Urine Ketones NEGATIVE NEGATIVE Urine Nitrite NEGATIVE NEGATIVE Urine Bilirubin NEGATIVE NEGATIVE Urine Urobilinogen 0.2 < = 1.0 MG/DL Urine Leukocyte Esterase NEGATIVE NEGATIVE Urine RBC (Auto) 3+ H NEGATIVE Urine RBC >100 H /HPF Urine WBC RARE /HPF Urine Squamous Epithelial Cells 10-25 H /HPF Urine Crystals NONE /LPF Urine Bacteria NEGATIVE /HPF Urine Casts NONE /LPF Urine Mucus NEGATIVE /LPF Urine Culture Indicated NO My Orders Orders - DEV MCDOWELL MD Cbc With Automated Diff (08/14/22 22:22) Comprehensive Metabolic Panel (08/14/22 22:22) Blood Culture (08/14/22 22:22) Ua Culture If Indicated (08/14/22 22:22) Chest 1 View Ap/Pa Only (08/14/22 22:22) Ed Iv/Invasive Line Start (08/14/22 22:22) Crp Fs (08/14/22 22:22) Lactic Acid Analyzer (08/14/22 22:22) Ns Iv 1000 Ml (Sodium Chloride 0.9%) (08/14/22 22:24) Implanted Port: Access (08/14/22 22:39) Levofloxacin 750 Mg/150 Ml Iv (Levaquin (08/14/22 23:12) Vital Signs/I&O 08/14/22 22:13 Temp 36.9 Pulse 114 Resp 18 B/P (MAP) 134/83 (100) Pulse Ox 97 O2 Delivery Room Air Capillary Refill : Progress Note #1: Progress Note Potential life-threatening diagnosis of neutropenic fever, sepsis, renal failure, hepatic failure. Obtain IV access and check labs to look at CBC, chemistry, blood cultures, lactic acid, urinalysis, CRP. Chest x-ray to look for possible pulmonary source of infection to be causing her fever. Once I have her CBC back and can see what her ANC is will contact the frontend engineer Oncology doctor in at [phone]. If she is neutropenic and had the fever at home, especially if unable to find a source of infection to treat she will need admit to hospital for IV antibiotics until the cultures come back negative. Progress Note #2: Time: 22:38 Progress Note On my review and personal interpretation of her 1 view chest xray she has no acute infiltrate or effusion. She has port placed on right side. her right diaphragm is slightly elevated but on comparison to prior CXR it is stable. CBC shows her WBC count is 4.3 with Hgb 10.9 and platelets 173. She has 42% Neutrophils for an ANC of 1.8. Thus she is not neutropenic but still do not have a source for her fever other than the chemotherapy treatment itself. Progress Note #3: Time: 22:58 Progress Note Chemistry without acute significant abnormality and Lactic acid not elevated at 1.25. UA has some blood present but no Nit, LE, Bacteria, WBC. CRP is <0.3. Page placed through answering service for Dr. García with [facility]. Will check in with the frontend engineer oncologist to see what they recommend doing for the patient as she has no clear source of infection to cause her fever and she is not neutropenic with an ANC of 1.8. [id number] Dr. Kenny, callisthenics instructor Oncologist for Dr. García, called back and I reviewed the labs and presentation with her. Since patient did not have UTI, pn eumonia, sepsis or neutopenia under 1 she felt that transfer to [place] with admit was not necessary. Will treat with Levaquin for 5-7 days to cover for possible bacterial infection until cultures are back. Dr. Kenny will discuss the case with Dr. García in the morning and if anything different is needed they will call patient. I ordered a dose of Levaquin 750 mg IV x 1 here and once it is infused will deaccess port and give Heparin to pack the port. Then discharge with script to [facility] for 5 more days of Levaquin. I counseled patient on results and plan after speaking with Dr. Kenny. She was agreeable with going home on antibiotic and will follow up with Oncology over the phone tomorrow. Diagnostic Imaging Diagonstic Imaging: Xray Plain Films/CT/US/NM/MRI: chest Comments On my review and personal interpretation of her 1 view chest x-ray she has no acute infiltrate or effusion. Reviewed: Reviewed by Me Departure Impression Primary Impression: Fever in adult Additional Impressions: S/P chemotherapy, time since less than 4 weeks Ovarian cancer Qualified Codes: C56.9 - Malignant neoplasm of unspecified ovary Disposition: 01 HOME, SELF-CARE Condition: Stable Departure-Patient Inst. Decision time for Depature: 23:23 Referrals: MERE SU MD (PCP/Family) Primary Care Physician Patient Instructions: Fever, Adult ED Add. Discharge Instructions: Stay well hydrated and drink plenty of fluids. Take the full course of antibiotic, Levofloxacin (Levaquin), once a day for next 5 days. Check back with oncologist tomorrow for continued concerns. All discharge instructions reviewed with patient and/or family. Voiced understanding. Scripts Levofloxacin (Levofloxacin) 750 Mg Tablet 750 MG PO DAILY for Fever on Chemotherapy for 5 Days, #5 TAB 0 Refills Prov: DEV MCDOWELL MD 08/14/22 DEV MCDOWELL MD Aug 14, 2022 22:39
[2022-08-14 22:51] LABS: BILIRUBIN,URINE NEGATIVE (NEGATIVE); CLARITY,URINE CLEAR; COLOR,URINE YELLOW; GLUCOSE, URINE (UA) NEGATIVE (NEGATIVE); KETONES,URINE NEGATIVE (NEGATIVE); LEUKOCYTE ESTERASE ,URINE NEGATIVE (NEGATIVE); NITRITE,URINE NEGATIVE (NEGATIVE); PROTEIN,URINE NEGATIVE (NEGATIVE)
[2022-08-14 22:53] LABS: ALANINE AMINOTRANSFERASE 13 U/L (0-55); ALKALINE PHOSPHATASE 59 U/L (40-136); BILIRUBIN,TOTAL < 0.2 MG/DL (0.1-1.0); BUN/CREATININE RATIO 17; CALCIUM 9.2 MG/DL (8.5-10.1); CARBON DIOXIDE 25 MMOL/L (21-32); CHLORIDE 99 MMOL/L (98-107); CREATININE SERUM 0.54 MG/DL (0.60-1.30); GFR ESTIMATED 133; GLUCOSE 97 MG/DL (70-105); POTASSIUM 3.7 MMOL/L (3.6-5.0); SODIUM 135 MMOL/L (135-145); TOTAL PROTEIN 6.9 GM/DL (6.4-8.2)
[2022-08-14 22:56] LABS: BACTERIA,URINE NEGATIVE /HPF; RBC,URINE >100 /HPF; WBC,URINE RARE /HPF
[2022-08-14] MEDS ORDERED: LEVO750T PO (23:24)
[2022-08-15 00:49] VITALS: BP 128/73
--- NOTE | 2022-08-15 07:09 | Diagnostic Imaging Report ---
INDICATION: Ovarian carcinoma and fever. AP view of chest is obtained. Since 07/11/2021 there has been placement of a right anterior chest wall port with catheter tip projecting over the superior vena cava. There is no evidence of pneumothorax, consolidation or pleural fluid. IMPRESSION: No acute abnormality. Dictated by: Dictated on workstation # [id number]
== END 2022-08-15 00:49 | disposition home or self-care (01) ==
LOC: EDUNIT# 22:07 → ER FS 22:11
DX: R50.9 Fever, unspecified (principal); C56.9 Malignant neoplasm of unspecified ovary; E66.9 Obesity, unspecified; Z68.38 Body mass index [BMI] 38.0-38.9, adult; Z28.310 Unvaccinated for COVID-19; Z79.899 Other long term (current) drug therapy
CPT/HCPCS: 36415; 71045; 80053; 81000; 83605; 85025; 86141; 87040

== ENCOUNTER → 2023-05-29 | Outpatient (CLI) | payer OTHER, MEDICAID ==
[~2023-05-29] MED LIST changes: +LEVO750T PO
== END ==
LOC: LAB FS 16:39
PROVIDERS: ATTEND Obstetrics & Gynecology
DX: Z32.01 Encounter for pregnancy test, result positive (principal)
CPT/HCPCS: 36415; 84144; 84702

== ENCOUNTER → 2023-05-31 | Outpatient (CLI) | payer OTHER, MEDICAID | LOC: LAB FS 16:41 | PROVIDERS: ATTEND Obstetrics & Gynecology | DX: Z36.89 Encounter for other specified antenatal screening (principal) | CPT/HCPCS: 36415; 84702 ==